=== PATIENT | female | born 1965 | race Caucasian/White ===

== ENCOUNTER 2020-03-18 11:34 | Emergency (ER) | payer OTHER ==
[~2020-03-18] VITALS: Ht 172.7 cm; Wt 75.7 kg
[~2020-03-18 11:34] MED LIST: ADVAIR 500-501 EACH INH; BUPROPION XL300 MG PO; BUSPIRONE HCL5 MG PO; DULOXETINE HCL30 MG PO; ESTRADIOL2 MG PO; FLONASE ALLERG9.9 ML NAS; GABAPENTIN300 MG PO; HYDROCHLOROTHIA25 MG PO; HYDROXYZINE HCL50 MG PO; KETOCONAZOLE15 GM TOP; LANSOPRAZOLE30 MG PO; LINZESS145 MCG PO; MOTRIN IB200 MG PO; NAPROXEN500 MG PO; NORCO 5-325 TA1 EACH PO; PRAVASTATIN SOD20 MG PO; PREDNISONE20 MG PO; PROVERA2.5 MG PO; SINGULAIR10 MG PO; SPIRIVA RESPIMAT4 G1 INH; SYMBICORT 16010.2 GM INH; ZOFRAN4 MG PO
--- OUTSIDE RECORDS SUMMARY | 2020-03-18 11:36 | XMS ---
PreManage Notification: DRU DUNN Security Copy Manager Events No recent Security Events currently on file CR[facility]IA MET - [facility] There are no care providers on record at this time. Chani has no Care Guidelines for this patient. Evan VISIT COUNT (12 MO.) 1 [facility] [place] TOTAL 1 NOTE: Visits indicate total known visits. ED/UCC VISIT TRACKING (12 MO.) 03/18/2020 11:34 [facility] [place] TYPE: Emergency COMPLAINT: - BACK/HIP PAIN NON INJURY INPATIENT VISIT TRACKING (12 MO.) No inpatient visits to display in this time frame [id number]
[2020-03-18] MEDS ORDERED: PREDNISONE20 MG PO (12:35)
[2020-03-18] MEDS ORDERED: NEURONTIN100 MG PO ×2 (12:36→12:37)
== END 2020-03-18 13:13 | disposition home or self-care (01) ==
LOC: ED 11:34
DX: M54.5 Low back pain (principal); J45.909 Unspecified asthma, uncomplicated; F17.200 Nicotine dependence, unspecified, uncomplicated; Z88.0 Allergy status to penicillin; Z88.8 Allergy status to other drugs, medicaments and biological substances; Z79.899 Other long term (current) drug therapy
CPT/HCPCS: 96372; 99283; J1100; J1885

== ENCOUNTER 2020-05-05 11:08 | Emergency (ER) | payer OTHER ==
[~2020-05-05] VITALS: Ht 172.7 cm; Wt 72.1 kg
[~2020-05-05 11:08] MED LIST changes: +NEURONTIN100 MG PO
--- OUTSIDE RECORDS SUMMARY | 2020-05-05 11:10 | XMS ---
PreManage Notification: DRU DUNN Security Program Manager Rn Events No recent Security Events currently on file CRITERIA MET - [facility] There are no care providers on record at this time. Chani has no Care Guidelines for this patient. Evan VISIT COUNT (12 MO.) 2 [facility] [place] TOTAL 2 NOTE: Visits indicate total known visits. ED/C VISIT TRACKING (12 MO.) 05/05/2020 11:08 [facility] [place] TYPE: Emergency COMPLAINT: - L SHOULDER PAIN 03/18/2020 11:[address] [facility] [place] TYPE: Emergency COMPLAINT: - BACK/HIP PAIN NON INJURY DIAGNOSES: - Allergy status to other drugs, medicaments and biological substances - Unspecified asthma, uncomplicated - Low back pain - Other pet technologist (current) drug therapy - Allergy status to penicillin - Allergy status to other drugs, medicaments and biological substances - Nicotine dependence, unspecified, uncomplicated INPATIENT VISIT TRACKING (12 MO.) No inpatient visits to display in this time frame [email or web address]
[2020-05-05] MEDS ORDERED: HYDROCODON-ACE1 EA10 PO (14:00)
--- NOTE | 2020-05-07 13:33 | EKG ---
[facility] [address] [place] [address] Signed Normal sinus rhythm Anterior infarct (cited on or before 23-DEC-2019) Abnormal ECG When compared with ECG of 23-DEC-2019 10:25, Vent. rate has increased BY 37 BPM Confirmed by NADIA CALVIN MD ([id number]) on 05/07/2020 1:32:59 PM Electronically Signed By: NADIA CALVIN MD 05/07/20 1333 PATIENT NAME: DRU DUNN Electrocardiogram DATE OF : 61 PHYSICIAN: NADIA CALVIN MD REPORT #: [id number] REPORT IS CONFIDENTIAL AND NOT TO BE RELEASED WITHOUT AUTHORIZATION
== END 2020-05-05 14:24 | disposition home or self-care (01) ==
LOC: ED 11:08
DX: M25.512 Pain in left shoulder (principal); J45.909 Unspecified asthma, uncomplicated; F17.200 Nicotine dependence, unspecified, uncomplicated; Z88.0 Allergy status to penicillin; Z88.6 Allergy status to analgesic agent; Z79.899 Other long term (current) drug therapy
CPT/HCPCS: 73030; 93005; 93010; 99283-25

== ENCOUNTER 2021-01-14 18:32 | Emergency (ER) | payer OTHER ==
[~2021-01-14] VITALS: Ht 172.7 cm; Wt 72.1 kg
[~2021-01-14 18:32] MED LIST changes: +HYDROCODON-ACE1 EA10 PO
--- OUTSIDE RECORDS SUMMARY | 2021-01-14 18:34 | XMS ---
PreManage Notification: DRU DUNN Security Jewel Stringer Events No recent Security Events currently on file CRITERIA MET - [facility]MP CARE PROVIDERS [facility], Clinic/Center: [facility] PHONE: [phone] JOZEF SCHWARTZ [facility] 05/06/2020-Current PHONE: [phone] Chani has no Care Guidelines for this patient. Care History Medical/Surgical 05/06/2020 [facility] - PLEASE BE ADVISED- PATIENT CURRENTLY ON A PAIN CONTRACT 05/06/2020 [facility] Care Recommendation: - PLEASE REVIEW PDMP - CHANI - USE EXTREME CAUTION IN GIVING NARCOTICS. - Avoid Discharge Narcotic prescriptions if at all possible. Physician discretion. E.D. VISIT COUNT (12 MO.) [address] [facility] TOTAL 3 NOTE: Visits indicate total known visits. ED/UCC VISIT TRACKING (12 MO.) 01/14/2021 18:32 [facility] [place] TYPE: Emergency COMPLAINT: - POSSIBLE SEIZURE,WEAKNESS 05/05/2020 11:08 [facility] [place] TYPE: Emergency COMPLAINT: - L SHOULDER PAIN DIAGNOSES: - Allergy status to analgesic agent - Pain in left shoulder - Unspecified asthma, uncomplicated - Other nursing home (current) drug therapy - Allergy status to penicillin - Nicotine dependence, unspecified, uncomplicated 03/18/2020 11:[address] 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
--- NOTE | 2021-01-15 18:56 | EKG ---
[facility] [address] [facility] [place] [address] Signed Sinus rhythm with occasional premature ventricular complexes Possible Left atrial enlargement Pulmonary disease pattern Septal infarct (cited on or before 23-DEC-2019) Abnormal ECG When compared with ECG of 21-OCT-2020 15:38, No significant change was found Confirmed by NADIA CALVIN MD ([id number]) on 01/15/2021 6:56:36 PM Electronically Signed By: NADIA CALVIN MD 01/15/21 1856 PATIENT NAME: DRU DUNN Electrocardiogram DATE OF : 61 PHYSICIAN: NADIA CALVIN MD REPORT #: [id number] REPORT IS CONFIDENTIAL AND NOT TO BE RELEASED WITHOUT AUTHORIZATION
== END 2021-01-15 00:11 | disposition home or self-care (01) ==
LOC: ED 18:32
DX: R41.82 Altered mental status, unspecified (principal); J45.909 Unspecified asthma, uncomplicated; F17.200 Nicotine dependence, unspecified, uncomplicated; Z20.822 Contact with and (suspected) exposure to COVID-19; Y90.0 Blood alcohol level of less than 20 mg/100 ml; Z88.0 Allergy status to penicillin; Z88.6 Allergy status to analgesic agent; Z79.899 Other long term (current) drug therapy; Z79.52 Long term (current) use of systemic steroids
CPT/HCPCS: 51701; 70450; 71045; 80053; 81001; 84443; 84484; 84703; 85025; 93005; 93010; 99285-25; C9803; G0480; J7030; U0003

== ENCOUNTER 2021-09-01 10:46 | Emergency (ER) | payer OTHER ==
[~2021-09-01] VITALS: Ht 172.7 cm; Wt 77.0 kg
--- OUTSIDE RECORDS SUMMARY | 2021-09-01 10:48 | XMS ---
PreManage Notification: DRU DUNN Security Shipping Clerk Events No recent Security Events currently on file CRITERIA MET - [facility] - 2 Visits in 30 Days - PDMP CARE PROVIDERS [facility], Clinic/Center: [facility] PHONE: Unknown JOZEF SCHWARTZ [facility] 05/06/2020-Current PHONE: Unknown Chani has no Care Guidelines for this patient. Care History Medical/Surgical 05/06/2020 [facility] - PLEASE BE ADVISED- PATIENT CURRENTLY ON A PAIN CONTRACT 05/06/2020 [facility] Care Recommendation: - PLEASE REVIEW PDMP - CHANI - USE EXTREME CAUTION IN GIVING NARCOTICS. - Avoid Discharge Narcotic prescriptions if at all possible. Physician discretion. E.D. VISIT COUNT (12 MO.) [address] [facility] TOTAL 4 NOTE: Visits indicate total known visits. ED/UCC VISIT TRACKING (12 MO.) 09/01/2021 10:46 [facility] [place] TYPE: Emergency COMPLAINT: - CHEST PAIN, HEADACHE 08/31/2021 09:56 [facility] [place] TYPE: Emergency COMPLAINT: - HEADACHE, SORE THROAT, EAR ACHE, DRY COUGH 08/30/2021 20:54 [facility] [place] TYPE: Emergency COMPLAINT: - HEADACHE, SORE THROAT 01/14/2021 18:32 [facility] [place] TYPE: Emergency COMPLAINT: - POSSIBLE SEIZURE,WEAKNESS DIAGNOSES: - Blood alcohol level of less than 20 mg/100 ml - Contact with and (suspected) exposure to COVID-19 - Altered mental status, unspecified - Allergy status to penicillin - Allergy status to analgesic agent - Nicotine dependence, unspecified, uncomplicated - Unspecified asthma, uncomplicated - Other equip maint eng (current) drug therapy - 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
[2021-09-02] MEDS ORDERED: CLONIDINE HCL0.1 MG PO (05:37)
--- NOTE | 2021-09-03 08:57 | EKG ---
[facility] [address] [facility] [place] [address] Signed Normal sinus rhythm Biatrial enlargement Septal infarct (cited on or before 23-DEC-2019) Possible Lateral infarct , age undetermined Abnormal ECG When compared with ECG of 14-JAN-2021 19:02, premature ventricular complexes are no longer present Borderline criteria for Lateral infarct are now present ST no longer elevated in Inferior leads Nonspecific T wave abnormality now evident in Inferior leads Confirmed by NADIA CALVIN MD ([id number]) on 09/03/2021 8:57:20 AM Electronically Signed By: NADIA CALVIN MD 09/03/21 0857 PATIENT NAME: DRU DUNN Electrocardiogram DATE OF : 61 PHYSICIAN: NADIA CALVIN MD REPORT #: [id number] REPORT IS CONFIDENTIAL AND NOT TO BE RELEASED WITHOUT AUTHORIZATION
== END 2021-09-01 13:06 | disposition left against medical advice (07) ==
LOC: ED 10:46
DX: Z53.21 Procedure and treatment not carried out due to patient leaving prior to being seen by health care provider (principal)
CPT/HCPCS: 93005; 93010

== ENCOUNTER 2021-09-02 05:24 | Emergency (ER) | payer OTHER ==
[~2021-09-02] VITALS: Ht 172.7 cm; Wt 78.0 kg
--- OUTSIDE RECORDS SUMMARY | 2021-09-02 05:26 | XMS ---
PreManage Notification: DRU DUNN Security Jewel Hole Gauger Events No recent Security Events currently on file CRITERIA MET - [facility] - 2 Visits in 30 Days - PDMP CARE PROVIDERS [facility], Clinic/Center: [facility] PHONE: Unknown JOZEF SCHWARTZ [facility] 05/06/2020-Current PHONE: Unknown Chani has no Care Guidelines for this patient. Care History Medical/Surgical 05/06/2020 [facility] - PLEASE BE ADVISED- PATIENT CURRENTLY ON A PAIN CONTRACT 05/06/2020 [facility] Care Recommendation: - PLEASE REVIEW PDMP - CHANI - USE EXTREME CAUTION IN GIVING NARCOTICS. - Avoid Discharge Narcotic prescriptions if at all possible. Physician discretion. E.D. VISIT COUNT (12 MO.) [address] [facility] TOTAL 5 NOTE: Visits indicate total known visits. 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
[2021-09-02] MEDS ORDERED: CLONIDINE HCL0.1 MG PO (05:37)
== END 2021-09-02 06:27 | disposition home or self-care (01) ==
LOC: ED 05:24
DX: B34.9 Viral infection, unspecified (principal); J45.909 Unspecified asthma, uncomplicated; F17.200 Nicotine dependence, unspecified, uncomplicated; Z88.0 Allergy status to penicillin; Z88.8 Allergy status to other drugs, medicaments and biological substances; Z79.899 Other long term (current) drug therapy; Z79.51 Long term (current) use of inhaled steroids
CPT/HCPCS: 71046; 99283-25

== ENCOUNTER 2022-07-31 07:31 | Day surgery (SDC) | payer OTHER ==
[~2022-07-31] VITALS: Ht 167.6 cm; Wt 65.9 kg
[~2022-07-31 07:31] MED LIST changes: +BUPRENORPHIN-N1 EACH SL; +CLONIDINE HCL0.1 MG PO; +K-TAB ER20 MEQ PO
[2022-07-31 07:55] VITALS: BP 142/66
--- NOTE | 2022-07-31 10:36 | NUR ---
07/31/22 Maryse6 [place] 1024-PATIENT ARRIVED TO PACU ON 6L MASK ORAL AIRWAY IN PLACE NONAROUSABLE RR EVEN. SR. IVF INFUSING. 5 LAP SITES TO ABDOMEN STERI STRIPS SMALL AMT OF SHADOWING TO RLQ. 1032-PATIENT AROUSING TO VERBAL STIMULI OPENING EYES AND MOVING UPPER EXTREMITIES. ORAL AIRAY REMOVED. REMAINS ON 6L MASK RR EVEN. PATIENT ORIENTED TO PACU CLOSES EYES.
[2022-07-31] MEDS ORDERED: OXYCODON-ACETA1 EAC2 PO (10:37)
[2022-07-31] MEDS ORDERED: ACETAMINOPHEN500 MG PO (10:38)
[2022-07-31 11:20] VITALS: BP 122/58
--- NOTE | 2022-07-31 11:32 | NUR ---
1120: PT ARRIVES TO DS RM 4 FROM PACU VIA STRETCHER WITH LEGS BENT TO CHEST, HUGGING PILLOW. PT WINCING WITH PAIN ON ARRIVAL, RATES 8/10 IN UPPER LAP SITES. PT PROVIDED ICED WATER PER REQUEST AND ROLLS TO LEFT SIDE WITH WARM BLANKETS PLACED. DC CRITERIA EXPLAINED, CALL LIGHT WITHIN REACH.
[2022-07-31 12:22] VITALS: BP 108/43
--- NOTE | 2022-07-31 12:24 | NUR ---
1220: PT WAKES WITH TACTILE AND VERBAL STIM. ANSWERS QUESTIONS APPROPRIATELY. VSS, RESP EVEN AND UNLABORED. DRESSING WITH SMALL AMOUNT OF RED DRAINAGE. SCDS IN PLACE. PT DENIES NEEDS AND REQUESTS AT THIS TIME. RESTS WITH EYES CLOSED. CALL LIGHT WITHIN REACH
[2022-07-31 13:04] VITALS: BP 147/74
--- NOTE | 2022-07-31 17:33 | NUR ---
IC1932: PT USES CALL LIGHT TO NOTIFY RN OF URGE TO VOID. PT SITS AT SIDE OF BED PRIOR TO STANDING, DENIES NAUSEA OR DIZZINESS. STEADY GAIT TO BATHROOM WITH RN ASSIST, PT ABLE TO VOID 550 MLS LIGHT YELLOW WITH NO PROBLEM. BACK TO DS RM 4 AND WOULD LIKE TO GET DRESSED AND DC HOME. LAP SITES REINFORCED WITH GAUZE AND PAPERTAPE TO PROTECT PERSONAL CLOTHING. PT DRESSES SELF AND OPENS CURTAIN WHEN FINISHED. PT CALLS SPOUSE FOR SAFE RIDE HOME. [id number]: DC INSTRUCTIONS PRESENTED VERBALLY AND WRITTEN TO PT. PT AWARE OF PRESCRIPTION IN DC FOLDER THAT WILL NEED TO BE TAKEN TO PHARMACY TO HAVE FILLED. PT DC FROM DS RM 4 VIA WC TO SPOUSE WAITING AT FRONT ENTRANCE OF HOSPITAL TO HOME.
--- NOTE | 2022-08-01 10:59 | OR ---
[facility] [address] [place], [place] [address] Signed DATE OF OPERATION: 07/31/2022 SURGEON: Nneka Campos MD PREOPERATIVE DIAGNOSIS: Chronic calculous cholecystitis. POSTOPERATIVE DIAGNOSIS: Chronic calculous cholecystitis. PROCEDURES: 1. Laparoscopic cholecystectomy with intraoperative cholangiogram. 2. Surgeon-directed fluoroscopy. ANESTHESIA: General endotracheal, Juan Lxu CRNA and local 10 mL of 0.25% Marcaine with epinephrine. INDICATION: This 57-year-old white woman is a patient of Dr. Renate Pope and has been found to have chronic calculous cholecystitis based on clinical symptoms and multiple gallstones seen on gallbladder ultrasound. She had anticipated operation in February 2022, however, was having symptoms suggestive of possible cardiac disease as well. She underwent a cardiac evaluation showing no significant coronary problem. On that basis, she is cleared for cholecystectomy at this time. The risks of bleeding, infection, bile duct injury, and so forth were reviewed with her in detail. Of note, her symptoms are significant enough that she has lost over 30 pounds due to decreased oral intake. This tentatively related to symptomatic gallbladder. FINDINGS: There is no evidence of malignancy in any way. The gallbladder was a very elongated and chronically inflamed. Once excised has had multiple variably sized multifaceted yellow gallstones including some nearly 2 cm and others that were 0.5 cm. Cholangiogram was normal. The liver had persistent lobulation and floppy medial segmental lobulation which made access and exposure somewhat more challenging, but cholecystectomy was performed without problem. DESCRIPTION OF PROCEDURE: The patient was brought to the operating room, given a general endotracheal anesthetic. Electronically Signed By: NNEKA CAMPOS MD 08/01/22 1059 PATIENT NAME: DRU DUNN OPERATIVE REPORT DATE OF : 61 REPORT #: [id number] PHYSICIAN: NNEKA CAMPOS MD PCP: RENATE POPE MD REPORT IS CONFIDENTIAL AND NOT TO BE RELEASED WITHOUT AUTHORIZATION [facility] [address] [place], [place] [address] Signed Preoperative antibiotic Ancef was given. Sequential compression device stockings were used. Heparin subcutaneously administered. The abdomen was prepared with a chlorhexidine solution and draped sterilely. An infraumbilical incision was made and using an open Taras cannula technique pneumoperitoneum was achieved at level 14 mmHg of carbon dioxide gas. Intra-abdominal inspection showed no sign of ascites or carcinomatosis. The gallbladder was chronically inflamed and impressively elongated. Three additional trocars were placed in usual configuration in the subxiphoid, right midclavicular, and right anterior axillary line. The gallbladder was elevated, but was so redundant that the midportion was then grasped and elevated more fully. Excessive hypertrophied lobulation of the medial segment of the left lobe of the liver was noted and on that basis, a 5 mm trocar was placed with application of a fan retractor to provide exposure to the infundibulum. Given her thin body habitus easy evaluation of the cystic duct and common bile duct was noted. Lateral retraction of the infundibulum of gallbladder was undertaken using blunt electrocautery dissection. The triangle of Calot was dissected free showing a funnel-like elongated cystic duct. Cystic arterial branch was divided with hernesto as well. A somewhat enlarged pericholecystic lymph node was also noted. Once the cystic duct was well identified from the surrounding area with maintenance of the critical view of safety a clip was applied across gallbladder cystic duct junction. A transverse choledochotomy was made in the cystic duct. Using an Hudson type cholangiocatheter intraoperative cholangiography was undertaken. Free flow of contrast was noted into the biliary tree and prompt emptying into the duodenum. There was no sign of biliary anomaly. The catheter was removed. The cystic duct was triply clipped and divided. The gallbladder was then dissected free in a retrograde fashion using electrocautery. Gallbladder was extracted through the infraumbilical port site without problem, opened on the back table and found to have multifaceted yellow gallstones. The mucosa was chronically inflamed. There was no sign of malignancy. Irrigation was undertaken in subhepatic space. There was no sign of bleeding or other problems. A few clips were applied to the omental vessels as well. Excess irrigation fluid was suctioned free. The trocars removed under direct visualization showing no sign of bleeding. The infraumbilical fascial incision was reapproximated with interrupted 0 Vicryl suture. 10 mL of 0.25% Marcaine with epinephrine was injected locally. The skin was then closed with interrupted 3-0 Vicryl. Steri-Strips were applied. The patient was ultimately extubated and transferred to the recovery room in good condition having suffered no complication. Sponge, needle, and instrument counts were reported as correct x3. Nneka Campos MD Electronically Signed By: NNEKA CAMPOS MD 08/01/22 1059 PATIENT NAME: DRU DUNN OPERATIVE REPORT DATE OF : 61 REPORT #: [id number] PHYSICIAN: NNEKA CAMPOS MD PCP: RENATE POPE MD REPORT IS CONFIDENTIAL AND NOT TO BE RELEASED WITHOUT AUTHORIZATION [facility] [address] [place] [address] Signed /MODL /[id number] cc: Renate Pope MD Copies: RENATE POPE MD ~ Electronically Signed By: NNEKA CAMPOS MD 08/01/22 1059 PATIENT NAME: DRU DUNN OPERATIVE REPORT DATE OF : 61 REPORT #: [id number] PHYSICIAN: NNEKA CAMPOS MD PCP: RENATE POPE MD REPORT IS CONFIDENTIAL AND NOT TO BE RELEASED WITHOUT AUTHORIZATION
--- NOTE | 2022-08-03 16:47 | PATH ---
[facility] [address] [place], [place] [address] Signed SPECIMEN(S): A GALLBLADDER WITH STONES SPECIMEN SOURCE: A. GALLBLADDER WITH STONES CLINICAL HISTORY: Calculus of gallbladder with cholecystitis. FINAL PATHOLOGIC DIAGNOSIS: Gallbladder, cholecystectomy: - Chronic cholecystitis. - Cholelithiasis. - Cholesterolosis. - No evidence of neoplasia. YUNIELK:godwin:C2NR MICROSCOPIC EXAMINATION: Histologic sections of all submitted blocks are examined by light microscopy. These findings, together with the gross examination, support the pathologic diagnosis. GROSS DESCRIPTION: The specimen, labeled and designated "Christy, gallbladder with stones," is received in formalin and consists of Specimen: Previously opened gallbladder. Dimensions: 11.5 x 5.0 x 1.8 cm. Serosa: Blanket to violaceous and wrinkled. Cystic Duct: Unobstructed. Calculi: Yellow to brown, multifaceted, 8.3 x 4.8 x 2.4 cm in aggregate. Mucosa: Blanket-trujillo and trabecular. Wall thickness: 0.5 cm. Lymph node: A single pericystic lymph node candidate, 0.4 cm (inked blue). Additional: No polyps or lesions are seen. Wallpaper Hanger sections are submitted in (A1). KEO (under the direct supervision of a pathologist) The Gross Description was prepared using a voice recognition system. The report was reviewed for accuracy; however, sound-alike word errors, addition and/or deletions may occur. If there is any question about this report, please contact Client Services. PERFORMING LABORATORY: PATIENT NAME: DRU DUNN PATHOLOGY DATE OF : 61 REPORT #: [id number] PHYSICIAN: MEHRDAD TAYLOR PCP: RENATE GLOVER MD REPORT IS CONFIDENTIAL AND NOT TO BE RELEASED WITHOUT AUTHORIZATION [facility] [address] [place] [address] Signed The technical component was performed by [facility], [address] [place] [address] (CLIA# [id number]). The professional interpretation was performed by [facility], [address] [address] (CLIA#: [id number]). Diagnostician: Phani Blanca MD Pathologist Electronically Signed 08/03/2022 Copies: ~ PATIENT NAME: DRU DUNN PATHOLOGY DATE OF : 61 REPORT #: [id number] PHYSICIAN: MEHRDAD TAYLOR PCP: RENATE GLOVER MD REPORT IS CONFIDENTIAL AND NOT TO BE RELEASED WITHOUT AUTHORIZATION
== END 2022-07-31 13:20 | disposition home or self-care (01) ==
LOC: DS 07:31
PROVIDERS: ATTEND Surgery
PROC: BF101ZZ Fluoroscopy of Bile Ducts using Low Osmolar Contrast (ICD-10-PCS; 2022-07-31)
PROC: 0FT44ZZ Resection of Gallbladder, Percutaneous Endoscopic Approach (ICD-10-PCS; principal; 2022-07-31 09:00)
DX: K80.10 Calculus of gallbladder with chronic cholecystitis without obstruction (principal); I10 Essential (primary) hypertension; J44.9 Chronic obstructive pulmonary disease, unspecified; F17.210 Nicotine dependence, cigarettes, uncomplicated; Z79.899 Other long term (current) drug therapy; Z88.0 Allergy status to penicillin
CPT/HCPCS: 00790; 74300; J0131; J0330; J0690; J1100; J1170; J1644; J1885; J2001; J2250; J2405; J2704; J3010; J3475; J7121; Q9967

== ENCOUNTER 2023-11-28 11:04 | Observation (INO) | payer OTHER ==
[~2023-11-28] VITALS: Ht 167.6 cm; Wt 58.3 kg
[~2023-11-28 11:04] MED LIST changes: +ACETAMINOPHEN500 MG PO; -ADVAIR 500-501 EACH INH; -CLONIDINE HCL0.1 MG PO; -ESTRADIOL2 MG PO; -LANSOPRAZOLE30 MG PO; +OXYCODON-ACETA1 EAC2 PO
[2023-11-28] MEDS ORDERED: SODIUM CHLORIDE 0.9% 1,000 ML IV ONE (12:15)
[2023-11-28] MEDS ORDERED: ondansetron HCL 4 MG/2 ML VIAL IV ONE (12:15)
[2023-11-28] MEDS ORDERED: HYDROmorphone HCL 1 MG/ML SYR IV ONE (12:15)
[2023-11-28 12:24] LABS: BASOPHILS 1.3 % (0-2); EOSINOPHILS 2.4 % (0-6); HEMATOCRIT 44.8 % (35.0-50.0); HEMOGLOBIN 15.1 g/dL (12.0-18.0); LYMPHOCYTES 33.8 % (24-44); MCH 30.2 (27-36); MCHC 33.7 g/dl (30-36); MCV 89.7 fl (81-99); MONOCYTES 6.8 % (0-12); NEUTROPHILS 55.7 % (39-80); PLATELET COUNT 367 K/uL (140-440); RDW 14.7 (10.5-15.0)
[2023-11-28 12:28] LABS: BILIRUBIN, URINE NEGATIVE (negative); BLOOD/HGB, URINE NEGATIVE (Negative); KETONE, URINE NEGATIVE (Negative); LEUK ESTERASE, URINE NEGATIVE (negative); NITRITE, URINE NEGATIVE (negative); PH, URINE 6.5 (5-7)
[2023-11-28 12:29] LABS: ALBUMIN 4.2 g/dL (3.4-5.0); ALBUMIN/GLOBULIN RATIO 1.14 (1.1-2.4); ANION GAP 14.7 (7-21); BILIRUBIN, TOTAL 0.3 ng/dL (0.2-1.0); BUN/CREATININE RATIO 12.32 (6.0-28.6); CALCIUM 9.5 mg/dL (8.5-10.1); CREATININE, SERUM 0.73 mg/dL (0.55-1.02); POTASSIUM 3.7 mmol/L (3.5-5.1); PROTEIN, TOTAL 7.9 g/dL (6.4-8.2)
[2023-11-28] MEDS ORDERED: ATORVASTATIN CA40 MG PO (14:38)
[2023-11-28] MEDS ORDERED: VENTOLIN HFA18 GM INH (14:38)
[2023-11-28] MEDS ORDERED: FLUOXETINE HCL40 MG PO (14:38)
[2023-11-28] MEDS ORDERED: BUPROPION XL150 MG PO (14:39)
[2023-11-28] MEDS ORDERED: ESTRADIOL2 MG PO (14:40)
[2023-11-28] MEDS ORDERED: CLONIDINE HCL0.1 MG PO (14:40)
[2023-11-28] MEDS ORDERED: LANSOPRAZOLE30 MG PO (14:40)
[2023-11-28] MEDS ORDERED: MONTELUKAST SOD10 MG PO (14:41)
[2023-11-28 14:54] VITALS: BP 159/81
[2023-11-28] MEDS ORDERED: DEXTROSE 5% - LACTATED RINGERS 1,000 ML IV SCH ×2 (15:00→17:00)
[2023-11-28] MEDS ORDERED: ondansetron HCL 4 MG/2 ML VIAL IV PRN ×2 (15:00→17:00)
[2023-11-28] MEDS ORDERED: HYDROmorphone HCL 1 MG/ML SYR IV PRN ×2 (15:00→17:00)
[2023-11-28] MEDS ORDERED: BENADRYL25 MG PO (15:38)
[2023-11-28] MEDS ORDERED: SLEEP AID25 M1 PO (15:39)
[2023-11-28] MEDS ORDERED: SPIRIVA18 MCG INH (15:40)
[2023-11-28] MEDS ORDERED: ADVAIR 500-501 EACH INH (15:41)
--- NOTE | 2023-11-28 15:42 | EKG ---
[facility] [address] [facility] [place] [address] Signed Normal sinus rhythm Low voltage QRS Septal infarct (cited on or before 23-DEC-2019) Abnormal ECG When compared with ECG of 27-FEB-2022 15:30, No significant change was found Confirmed by Tim Cantu ([id number]) on 11/28/2023 3:42:12 PM Electronically Signed By: TIM CANTU MD 11/28/23 1542 PATIENT NAME: DRU DUNN Electrocardiogram DATE OF : 61 PHYSICIAN: TIM CANTU MD REPORT #: [id number] REPORT IS CONFIDENTIAL AND NOT TO BE RELEASED WITHOUT AUTHORIZATION
--- NOTE | 2023-11-28 15:43 | NUR ---
MED REC COMPLETE
[2023-11-28] MEDS ORDERED: levoFLOXacin 500 MG/100 ML BAG IV SCH (16:49)
[2023-11-28] MEDS ORDERED: ENOXAPARIN SODIUM 40 MG/0.4 ML SYR SUB-Q SCH (16:50)
[2023-11-28] MEDS ORDERED: PANTOPRAZOLE SODIUM 40 MG/10 ML VIAL IV SCH (16:50)
[2023-11-28] MEDS ORDERED: ACETAMINOPHEN 325 MG TAB PO PRN (17:00)
[2023-11-28] MEDS ORDERED: ACETAMINOPHEN 650 MG SUPP PR PRN (17:00)
[2023-11-28] MEDS ORDERED: HYDROCODONE/APAP 10/325 1 TAB PO PRN (17:00)
[2023-11-28] MEDS ORDERED: PROCHLORPERAZINE EDISYLATE 10 MG/2 ML VIAL IV PRN (17:00)
[2023-11-28 17:35] VITALS: BP 155/84
[2023-11-28] MEDS ORDERED: ALBUTEROL/IPRATROPIUM 3 ML NEB INH PRN (18:00)
[2023-11-28] MEDS ORDERED: hydrALAZINE HCL 20 MG/ML VIAL IV PRN (18:00)
[2023-11-28] MEDS ORDERED: hydrOXYzine pamoate 25 MG CAP PO PRN (18:00)
--- NOTE | 2023-11-28 19:58 | NUR ---
REPORT RECIEVED FROM DAY SHIFT RN. PATIENT RESTING IN BED WATCHING TV. RESPIRATIONS EVEN AND UNLABORED. CALL LIGHT IN REACH.
[2023-11-28] MEDS ORDERED: BUDESONIDE 0.5 MG/2 ML VIAL INH SCH (20:00)
--- NOTE | 2023-11-28 20:55 | NUR ---
PATIENT RESTING IN BED. VS AND I&Os OBTAINED AND RECORDED. PATIENT REPORTS 8/10 MID ABD PAIN NEAR UMBILICUS. PRN PAIN MEDICATION ADMINISTERED PER PATIENT REQUEST. IV FLUSHES WNL. PATIENT DENIES NURTHER NEEDS. CALL LIGHT IN REACH.
[2023-11-28 20:58] VITALS: BP 149/87
--- NOTE | 2023-11-28 23:37 | NUR ---
PATIENT RESTING IN BED ON LEFT SIDE WITH EYES CLOSED. RESPIRATIONS EVEN AND UNLABORED. CALL LIGHT IN REACH.
[2023-11-29] VITALS (10 sets, daily range): BP systolic 124–167; BP diastolic 69–101
--- NOTE | 2023-11-29 00:01 | NUR ---
LEAD ENGINEER WENT INTO ROOM AND REMOVED PT CUPS AND INFORMED PT THAT SHE WAS NOW NPO. PT STATES NO FURTHER NEEDS AT THIS TIME. CALL LIGHT WITHIN REACH.
--- NOTE | 2023-11-29 01:21 | NUR ---
NAME PLATE STAMPER OBTAINED VITALS AND OUTPUT. PT STATES NO FURTHER NEEDS AT THIS TIME. CALL LIGHT WITHIN REACH.
--- NOTE | 2023-11-29 02:10 | NUR ---
IV PUMP ALARMING. NEW BAG IV FLUID INFUSING PER ORDER. PATIENT DENIES FURTHER NEEDS. CALL LIGHT IN REACH.
--- NOTE | 2023-11-29 03:55 | NUR ---
PATIENT RESTING IN BED ON LEFT SIDE WITH EYES CLOSED. RESPIRATIONS EVEN AND UNLABORED. CALL LIGHT IN REACH.
--- NOTE | 2023-11-29 05:43 | NUR ---
PARTITION MAKING MACHINE OPERATOR OBTAINED VITALS AND I&O. PT STATES NO NEEDS FROM PARTITION MAKING MACHINE OPERATOR. RN IN ROOM. CALL LIGHT WITHIN REACH.
--- NOTE | 2023-11-29 06:03 | NUR ---
PATIENT REPORTS 7/10 ABD PAIN NEAR UMBILICAL HERNIA. PRN PAIN MEDICATION ADMINISTERED PER PATIENT REQUEST. PATIENT DENIES FURTHER NEEDS AT THIS TIME. CALL LIGHT IN REACH.
[2023-11-29 07:15] LABS: BASOPHILS 1.3 % (0-2); EOSINOPHILS 2.9 % (0-6); HEMATOCRIT 38.7 % (35.0-50.0); HEMOGLOBIN 12.9 g/dL (12.0-18.0); LYMPHOCYTES 33.7 % (24-44); MCH 29.9 (27-36); MCHC 33.3 g/dl (30-36); MCV 89.8 fl (81-99); NEUTROPHILS 54.1 % (39-80); PLATELET COUNT 301 K/uL (140-440); RBC 4.31 M/ul (4.3-5.7); RDW 14.8 (10.5-15.0)
[2023-11-29 07:30] LABS: ALBUMIN 3.1 g/dL (3.4-5.0); ALBUMIN/GLOBULIN RATIO 1.03 (1.1-2.4); ANION GAP 10.7 (7-21); BILIRUBIN, TOTAL 0.3 ng/dL (0.2-1.0); BUN/CREATININE RATIO 7.69 (6.0-28.6); CALCIUM 8.5 mg/dL (8.5-10.1); CREATININE, SERUM 0.65 mg/dL (0.55-1.02); POTASSIUM 3.7 mmol/L (3.5-5.1); PROTEIN, TOTAL 6.1 g/dL (6.4-8.2)
--- NOTE | 2023-11-29 07:58 | NUR ---
UR CLINICAL REVIEW: AVNESSA, MEETS GENERAL OBSERVATION CRITERIA [facility] 11/28/23 @ 1405 ORDER MATCHES STATUS AUTH PENDING, WILL SEND CLINICALS IF REQUESTED VIA RIGHTFAX PLAN TO DC TO HOME WHEN STABLE 11/29/23
--- NOTE | 2023-11-29 08:46 | NUR ---
recieved report from shift nurse at 0715. pt is currently in bed resting and watching tv. no requests made at this time call light within reach
[2023-11-29] MEDS ORDERED: BUPIVACAINE HCL 0.25% 50 ML MDV ONE (09:27)
[2023-11-29] MEDS ORDERED: LIDOCAINE HCL 1% 30 ML SDV ONE ×2 (09:27→09:46)
[2023-11-29] MEDS ORDERED: LIDOCAINE HCL 2% 5 ML SDV ONE (09:46)
[2023-11-29] MEDS ORDERED: ROCURONIUM BROMIDE 50 MG/5 ML SYR ONE (09:46)
[2023-11-29] MEDS ORDERED: propofoL 200 MG/20 ML VIAL ONE (09:46)
[2023-11-29] MEDS ORDERED: DEXAMETHASONE SOD PHOS 4 MG/ML VIAL ONE (09:46)
[2023-11-29] MEDS ORDERED: ondansetron HCL 4 MG/2 ML VIAL ONE (09:46)
[2023-11-29] MEDS ORDERED: KETOROLAC TROMETHAMINE 30 MG/ML VIAL ONE (09:46)
[2023-11-29] MEDS ORDERED: fentaNYL citrate 100 MCG/2 ML VIAL ONE (09:47)
--- NOTE | 2023-11-29 09:51 | NUR ---
PT IS CURRENTLY OFF THE FLOOR AT SURGERY
[2023-11-29] MEDS ORDERED: SODIUM CHLORIDE 0.9% 20 ML IV ONE (10:01)
[2023-11-29] MEDS ORDERED: ePHEDrine sulfate 50 MG/ML AMP ONE (10:01)
[2023-11-29] MEDS ORDERED: ACETAMINOPHEN 1,000 MG/100 ML VIAL ONE (10:03)
[2023-11-29] MEDS ORDERED: LACTATED RINGER'S 1,000 ML IV ONE (10:38)
[2023-11-29] MEDS ORDERED: SUGAMMADEX SODIUM 200 MG/2 ML ML ONE (10:38)
--- NOTE | 2023-11-29 10:59 | NUR ---
PT GONE FOR PROCEDURE. PROVIDED PRAYER.
--- NOTE | 2023-11-29 11:00 | NUR ---
PATIENT SAID SHE ALREADY BRUSHED HER TEETH AND WASHED HER FACE THIS MORING. PATIENT IS INDEPENDENT.
--- NOTE | 2023-11-29 11:00 | CONS ---
[facility] [address], [place] [address] Signed DATE OF CONSULTATION: 11/28/2023 CHIEF COMPLAINT: Periumbilical abdominal pain. HISTORY OF PRESENT ILLNESS: Lenore is a 58-year-old female with a long history of smoking, who underwent a laparoscopic cholecystectomy in July [address] Cutler. She had some symptomatic cholelithiasis. She felt like she had some bulging in her umbilical trocar site immediately following the surgery. It has gotten progressively larger and more symptomatic. She has been working with her primary care provider. The molecular technologist did not ultrasound this area rather did a limited abdominal ultrasound of the liver and so forth. She went back for CT scan of abdomen and pelvis, of course one could see the transverse colon in this hernia. It is incarcerated and tender. There is some mild inflammatory changes as well. 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 Because of her increasing symptoms, she decided to come to the emergency room. Her hernia has been affecting her ability to help her and to go to work. 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 PAST MEDICAL HISTORY: 1. Anxiety. 2. Depression. 3. Asthma. 4. Chronic back pain. 5. Hypertension. 6. Degenerative disc disease of her neck and at L4 and L5. 7. A remote history of seizures. 8. Hyperlipidemia. 9. Right foot fracture, chronic pain and PTSD. PAST SURGICAL HISTORY: Includes: 1. Laparoscopic cholecystectomy in July [address] Cutler. 2. Surgery on her lumbar spine . SOCIAL HISTORY: She was smoking a pack of cigarettes a day, but she is down about five cigarettes a day. She does not drink. She likes to use an edible that contain CBD and THC to go to sleep each night. She is to [employer] at [phone], she does not drive, so [employer] or her friend has to take her to work. She has two daughters that are grown. She is a full code. 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 Dr. Renate Pope is her primary care provider. Electronically Signed By: JAN FISH MD 11/29/23 [facility] PATIENT NAME: LENORE DUNN CONSULTATION DATE OF : 61 REPORT #: [id number] PHYSICIAN: JAN FISH MD PCP: RENATE POPE MD REPORT IS CONFIDENTIAL AND NOT TO BE RELEASED WITHOUT AUTHORIZATION [facility] [address] [place] [address], [place] [address] Signed FAMILY HISTORY: Dad had lung cancer. REVIEW OF SYSTEMS: She had 10 systems reviewed and she told me she wore a boot for the right foot fracture. ALLERGIES: Penicillin, aspirin, amoxicillin all three gave her anaphylaxis. MEDICATIONS: 1. Symbicort. 2. Albuterol. 3. Spiriva. 4. Fluoxetine. 5. A list of other medications in the past. PHYSICAL EXAMINATION: VITAL SIGNS: Blood pressure 160/92, heart rate 86, respiratory rate 16, temperature is 97.5. She is 99% on room air. She is 5 feet 6 inches tall at 58 kg. Her body mass index is 20.6. GENERAL: Lenore is a 58-year-old female, lying supine in her hospital bed, watching TV. She is in no acute distress. LUNGS: Clear to auscultation bilaterally. She has very dry, raspy voice. HEART: Regular rate and rhythm without murmurs. ABDOMEN: Soft and flat. I can see the hernia bulging through her bed sheet. It is tender and incarcerated and it is probably 6 or 7 cm in diameter. It is tender and not reducible. LABORATORY DATA: Her white blood count 3.7, hemoglobin 15, neutrophils 65. Electrolytes unremarkable. UA negative. Liver function tests negative. Albumin 4.2. RADIOGRAPHIC STUDIES: An ultrasound done in September of 2023 of the abdomen rather than the hernia was unremarkable as expected. A CT scan and pelvis done two days ago shows some mild right hydronephrosis with a little bit of stricture probably at the UPJ. She also has the incarcerated umbilical hernia containing her transverse colon without obvious obstruction. She also has some mild inflammation in the mesentery. ASSESSMENT AND PLAN: Lenore is a 58-year-old female, who has an incarcerated symptomatic incisional umbilical hernia from her laparoscopic cholecystectomy. It most likely represents a Padilla's type hernia. She has been admitted and started on IV fluids, and allowed to have some Electronically Signed By: JAN FISH MD 11/29/23 [facility] PATIENT NAME: LENORE DUNN CONSULTATION DATE OF : 61 REPORT #: [id number] PHYSICIAN: JAN FISH MD PCP: RENATE POPE MD REPORT IS CONFIDENTIAL AND NOT TO BE RELEASED WITHOUT AUTHORIZATION [address] [address] Signed clear liquids. She is much better with a little Dilaudid as well. I reviewed all the findings with her in detail. I have explained to her the need for the surgery to repair that hernia. She understands expected intraop and postop course. She is hoping to go home tomorrow after the surgery. That depends on the intraoperative findings. There is risk including, but not limited to bleeding, infection, scarring, change in contour of the skin, damage to bowel, infection of mesh requiring removal, recurrent hernias and chronic pain. She has expressed understanding and would like to proceed with surgery tomorrow. Jan Fish MD ALB/MODL /[id number] cc: MD Renate Sarmiento MD Copies: JAN FISH MD, RUSSEL J MD ~ Electronically Signed By: JAN FISH MD 11/29/23 1100 PATIENT NAME: LENORE DUNN CONSULTATION DATE OF : 61 REPORT #: [id number] PHYSICIAN: JAN FISH MD PCP: RENATE POPE MD REPORT IS CONFIDENTIAL AND NOT TO BE RELEASED WITHOUT AUTHORIZATION
--- NOTE | 2023-11-29 11:09 | NUR ---
11/29/23 1109 Lelia Hoang 1106: ORAL AIRWAY IS REMOVED. SHE IS ALERT AND ASKING QUESTIONS.
[2023-11-29] MEDS ORDERED: ondansetron HCL 4 MG/2 ML VIAL IV PRN (11:15)
[2023-11-29] MEDS ORDERED: IBLOOD GLUCOSE TEST STRIP 1 EA TEST VI PRN (11:15)
[2023-11-29] MEDS ORDERED: NALOXONE HCL 0.4 MG SYR IV PRN (11:15)
[2023-11-29] MEDS ORDERED: fentaNYL citrate 50 MCG/ML SDV IV PRN (11:15)
[2023-11-29] MEDS ORDERED: OXYCODONE HCL10 MG PO (12:32)
--- NOTE | 2023-11-29 13:06 | NUR ---
THIS RN IN ROOM TO OBTAIN POST-OP VITALS. VITALS COMPLETE. PT NOTED TO BE EATING APPLE SAUCE, PT DENIES ANY NAUSEA AT THIS TIME. IV INFUSING WNL. PT DENIES ANY OTHER NEEDS. CALL LIGHT IN REACH. PT FRIEND IN ROOM.
--- NOTE | 2023-11-29 14:43 | NUR ---
SPOKE WITH PATIENT. SHE IS ALERT AND ORIENTED UP IN RECLINER. STATES SHE LIVES IN HOUSE WITH STEPS TO GET INSIDE. NO STAIRS INSIDE THE HOUSE. ONLY DME SHE HAS IS A NEBULIZER. PATIENT IS STILL ABLE TO DRIVE, FRIEND IS IN ROOM TO TRANSPORT PATIENT HOME FROM FACILITY. PATIENT HAS NO FINANCIAL DIFFICULTIES. STATES SHE HAS NO NEEDS AT HOME. PLANS TO DC THIS AFTERNOON.
--- NOTE | 2023-11-29 16:57 | NUR ---
PT DC'd BY NICOLAS MATTA RN AT 15:00
--- NOTE | 2023-11-30 07:12 | OR ---
[facility] [address] [place], [place] [address] Signed DATE OF OPERATION: 11/29/2023 SURGEON: Jan Fish MD PREOPERATIVE DIAGNOSIS: Incarcerated umbilical trocar site incisional hernia (3 x 2 cm). POSTOPERATIVE DIAGNOSIS: Incarcerated umbilical trocar site incisional hernia (3 x 2 cm). PROCEDURE: Primary repair with 8 cm round intraabdominal Ventralex mesh. ESTIMATED BLOOD LOSS: None. INDICATIONS: Lenore is a 58-year-old female, who had undergone a laparoscopic cholecystectomy in July [address] Cutler. She had cholelithiasis. After the surgery she was feeling bulging in that area. 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 She is currently working at the local [employer] and [employer]. 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 She said the area was getting larger and more painful. It has never caused a bowel obstruction. But it was starting to bother her more and more. She says she has cut way back on her eating and lost 70 pounds. She had been to her primary care provider. Ultrasound was done, but did not include the area of the hernia. Two months later, she had her CT scan and of course it confirmed the transverse colon in the hernia but no obstruction. She had some mild inflammatory changes in the surrounding mesentery. She also has very mild right hydronephrosis at the level of the UPJ. She came to the emergency room two days later with increased symptoms. Vital signs were fine except she is off her blood pressure medications. Therefore, her blood pressure was high. Her hernia was not reducible at that time. It was tender. Therefore, I was asked to admit her as a general surgeon on-call. I saw her in the hospital and only partially reduced the hernia. We hydrated her overnight and started on antibiotics. We had our medical service see her because of her medical issues and the fact that she stopped her medications over a month ago. This morning, she was feeling better and more relaxed and the hernia could be reduced along the edge, but I could feel it was still attached and I told her it is probably a little scar tissue in that area. I explained to her the nature of the surgery required to repair the trocar site incisional hernia. She understands with her heavy work she will need mesh in addition to the primary suture repair. She understands there is risk including, Electronically Signed By: JAN FISH MD 11/30/23 0712 PATIENT NAME: LENORE DUNN OPERATIVE REPORT DATE OF : 61 REPORT #: [id number] PHYSICIAN: JAN FISH MD PCP: RENATE GLOVER MD REPORT IS CONFIDENTIAL AND NOT TO BE RELEASED WITHOUT AUTHORIZATION [address] [address] Signed but not limited to bleeding, infection, scarring, change in contour of the skin, damage to bowel infection of mesh requiring removal, recurrent hernias and chronic pain. We anticipate she will go home later today. We will see her back in the office in a week or so for followup. She is certainly welcome to go back to work in a few days only under light duty status. She had expressed understanding, wished to proceed. PROCEDURE IN DETAIL: I met with Lenore in our preop area. Of course, the hernia is quite obvious at the umbilicus. After this, she was taken in the operating room and placed in the supine position under general endotracheal tube anesthesia. She was on preoperative antibiotics. She was on preoperative Lovenox. SCDs were utilized. We had her go to the restroom right before she went in the operating room. Therefore, no Shields catheter was placed. She was prepped and draped in the usual sterile fashion. We used her previous infraumbilical vertical incision and we opened that up sharply with a knife. We went down around the hernia sac with the help of a cautery. The entire hernia sac was excised and passed off the field. Sure enough part of the transverse colon and the transverse mesocolon was adherent to the circumference of the hernia. That was easily taken down with the cautery. There was no other adhesions noted inside the abdomen. This gave us free access to her abdomen. The fascial defect measured 3 x 2 cm. We therefore chose our 8 cm round Ventralex mesh. We placed it inside the abdomen, brought up and flushed against the posterior abdominal wall. We closed the fascial defect transversely with interrupted [id number] and simple #1 Prolene sutures. Several passes of the suture went through the tab on the mesh to help hold it in place. The tab was then cut, flushed with the abdominal wall. Local anesthetic was copiously injected in the abdominal wall. We did not have to elevate the umbilicus from the fascia. We then brought the deep adipose tissue together with interrupted 3-0 Monocryl sutures. We injected local anesthetic into the abdominal wall in the subcutaneous tissues. The wound had been irrigated and suctioned out until clear. We closed the dermis with interrupted 3-0 subcuticular Monocryl sutures. The skin edges were reapproximated with a running 5-0 fast absorbing plain gut suture. Dry gauze and tape was then applied. Lenore was awakened from her anesthesia, extubated in the OR, and taken to recovery room in stable condition. Jan Fish MD ALB/MODL /[id number] Electronically Signed By: JAN FISH MD 11/30/23 07 PATIENT NAME: LENORE DUNN OPERATIVE REPORT DATE OF : 61 REPORT #: [id number] PHYSICIAN: JAN FISH MD PCP: RENATE GLOVER MD REPORT IS CONFIDENTIAL AND NOT TO BE RELEASED WITHOUT AUTHORIZATION [address] [address] Signed cc: MD Jan Sanchez MD Copies: RENATE GLOVER MD, ANDREW L MD ~ Electronically Signed By: JAN FISH MD 11/30/23711 PATIENT NAME: LENORE DUNN OPERATIVE REPORT DATE OF : 61 REPORT #: [id number] PHYSICIAN: JAN FISH MD PCP: RENATE GLOVER MD REPORT IS CONFIDENTIAL AND NOT TO BE RELEASED WITHOUT AUTHORIZATION
[2023-12-05] MEDS ORDERED: SYMBICORT 16010.2 GM INH (17:37)
[2023-12-05] MEDS ORDERED: CLONIDINE HCL0.1 MG PO (17:39)
[2023-12-05] MEDS ORDERED: LANSOPRAZOLE30 MG PO (17:41)
== END 2023-11-29 15:03 | disposition home or self-care (01) ==
LOC: ED 11:04 → MS 11:06
PROVIDERS: Emergency Medicine; Family Medicine; ADMIT Colon & Rectal Surgery; ATTEND Colon & Rectal Surgery
PROC: 0WUF0JZ Supplement Abdominal Wall with Synthetic Substitute, Open Approach (ICD-10-PCS; principal; 2023-11-29 09:00)
DX: K43.0 Incisional hernia with obstruction, without gangrene (principal); I10 Essential (primary) hypertension; F17.210 Nicotine dependence, cigarettes, uncomplicated; J45.909 Unspecified asthma, uncomplicated; F43.10 Post-traumatic stress disorder, unspecified; G89.29 Other chronic pain; M54.9 Dorsalgia, unspecified; E78.5 Hyperlipidemia, unspecified; Z79.899 Other long term (current) drug therapy; Z88.0 Allergy status to penicillin; Z88.8 Allergy status to other drugs, medicaments and biological substances
CPT/HCPCS: 00750; 36415; 80048; 80053; 81003; 83690; 85025; 93005; 93010; 94640; 96372; 96374; 96375; 96376; 99285-25; A9270; C1781; G0378; J0131; J1100; J1170; J1650; J1885; J1956; J2001; J2405; J2470; J2704; J3010; J3490; J7030; J7121

== ENCOUNTER 2023-12-18 06:40 | Day surgery (SDC) | payer OTHER ==
[~2023-12-18] VITALS: Ht 167.6 cm; Wt 57.1 kg
[~2023-12-18 06:40] MED LIST changes: +ADVAIR 500-501 EACH INH; +ATORVASTATIN CA40 MG PO; +BENADRYL25 MG PO; +BUPROPION XL150 MG PO; +CLINDAMYCIN PHOSPHATE/D5W 600 MG/50 ML BAG IV SCH; +CLONIDINE HCL0.1 MG PO; +ESTRADIOL2 MG PO; +FLUOXETINE HCL40 MG PO; +HEParin SOD (PORCINE) 5,000 UNIT/0.5 ML SYR SUB-Q SCH; +IBLOOD GLUCOSE TEST STRIP 1 EA TEST VI PRN; +LACTATED RINGER'S 1,000 ML IV SCH; +LANSOPRAZOLE30 MG PO; +LIDOCAINE HCL 1% 5 ML SDV INJ ONE; +MONTELUKAST SOD10 MG PO; +OXYCODONE HCL10 MG PO; +SLEEP AID25 M1 PO; +SPIRIVA18 MCG INH; +VENTOLIN HFA18 GM INH
[2023-12-18 06:59] VITALS: BP 141/77
[2023-12-18] MEDS ORDERED: LIDOCAINE HCL 1% 5 ML SDV INJ ONE (07:00)
[2023-12-18] MEDS ORDERED: HEParin SOD (PORCINE) 5,000 UNIT/0.5 ML SYR SUB-Q SCH (07:00)
[2023-12-18] MEDS ORDERED: CLINDAMYCIN PHOSPHATE/D5W 900 MG/50 ML BAG IV SCH (07:00)
[2023-12-18] MEDS ORDERED: IBLOOD GLUCOSE TEST STRIP 1 EA TEST VI PRN ×2 (07:00→10:15)
[2023-12-18] MEDS ORDERED: CLINDAMYCIN PHOSPHATE/D5W 600 MG/50 ML BAG IV SCH (07:00)
[2023-12-18] MEDS ORDERED: ondansetron HCL 4 MG/2 ML VIAL ONE (08:53)
[2023-12-18] MEDS ORDERED: LIDOCAINE HCL 2% 5 ML SDV ONE (08:53)
[2023-12-18] MEDS ORDERED: propofoL 200 MG/20 ML VIAL ONE ×2 (08:53→09:24)
[2023-12-18] MEDS ORDERED: fentaNYL citrate 100 MCG/2 ML VIAL ONE (08:54)
[2023-12-18] MEDS ORDERED: ePHEDrine sulfate 50 MG/ML AMP ONE (09:31)
[2023-12-18] MEDS ORDERED: LACTATED RINGER'S 1,000 ML IV ONE (09:50)
[2023-12-18] MEDS ORDERED: HYDROmorphone HCL 1 MG/ML SYR IV PRN ×3 (10:15→11:30)
[2023-12-18] MEDS ORDERED: ondansetron HCL 4 MG/2 ML VIAL IV PRN ×2 (10:15)
[2023-12-18] MEDS ORDERED: PROCHLORPERAZINE EDISYLATE 10 MG/2 ML VIAL IV PRN (10:15)
[2023-12-18] MEDS ORDERED: fentaNYL citrate 50 MCG/ML SDV IV PRN (10:15)
[2023-12-18] MEDS ORDERED: NALOXONE HCL 0.4 MG SYR IV PRN ×3 (10:15→11:30)
[2023-12-18] MEDS ORDERED: ACETAMINOPHEN 1,000 MG/100 ML VIAL IV ONE (10:45)
[2023-12-18] MEDS ORDERED: MIDAZOLAM HCL 2 MG/2 ML VIAL IV ONE (10:45)
[2023-12-18 10:53] VITALS: BP 127/79
--- NOTE | 2023-12-18 11:08 | NUR ---
12/18/23 1108 Dottie Dolan 1001 PT ARRIVED IN PACU ROLLING FROM SIDE TO SIDE AND MOANING IN PAIN. 1002 MEDS GIVEN BY ANESTHESIA. 1010 ICE TO ABD. 1020 CONTINUES TO C/O ABD PAIN 11/22. DILAUDID 0.5MG GIVEN IV. 1025 PAIN DOWN TO 7/10. DILAUDID 0.5MG GIVEN IV. 1035 OFFERED TO TRY FENTANYL FOR PAIN RELIEF AND PT REFUSED. 1040 NEW ORDERS RECEIVED FROM ANESTHESIA. 1045 VERSED 2MG GIVEN IVP TO HELP PT RELAX. OFIRMEV 1GM GIVEN IV FOR C/O ABD PAIN 10/22. 1050 NO CHANGE IN PAIN LEVEL. WILL RETURN TO DS TO TRY ORAL PAIN MEDICATION. 1055 TO DS. REPORT GIVEN TO MARYELLEN.
--- NOTE | 2023-12-18 11:25 | NUR ---
LE 1055-PT BACK TO ROOM FROM PACU ON RA. RECEIVED REPORT FROM GAURAV BOJORQUEZ. PT IS AWAKE. RESP EVEN AND UNLABORED. RATES PAIN 8/10, DENIES NAUSEA. PT IS RUBBING ABDOMEN. PT STATES ICE PACK TO HEAVY FOR ABDOMEN AT THIS TIME. PT IS EATING CRACKERS AND TAKING SIPS OF WATER. WILL GET ORDER FOR ORAL PAIN MECIATIONS. NO OTHER NEEDS AT THIS TIME. CALL LIGHT WITHIN REACH. LE 1122-PAIN MEDICATION GIVEN PER EMAR. FRIEND IN ROOM. NO OTHER NEEDS AT THIS TIME. CALL LIGHT WITHIN REACH. PT TOLERATING ICE PACK ON ABDOMEN.
[2023-12-18] MEDS ORDERED: OXYCODONE HCL 5 MG TAB PO PRN (11:30)
[2023-12-18 11:57] VITALS: BP 117/65
--- NOTE | 2023-12-18 12:09 | NUR ---
1157-PT IN BED ON HER PHONE. RESP EVEN AND UNLABORED. RATES PAIN A /10. PT STATES THIS IS TOLERABLE. PT STATES SHE IS FEELING MORE CALM AND THE BURNING SENSATION IS ALMOST GONE. PT DRINKING WATER. NO OTHER NEEDS AT THIS TIME. STATES SHE WOULD LIKE MORE TIME AND WILL USE CALL LIGHT WHEN READY TO USE THE RESTROOM.
[2023-12-18 12:53] VITALS: BP 116/92
--- NOTE | 2023-12-18 13:50 | NUR ---
LE 1253-PT LAYING IN BED ON HER PHONE. RESP EVEN AND UNLABORED. RATES PAIN 6/10 AND THIS IS TOLERABLE. PT STATES MUCH MORE RELAXED. DENIES NAUSEA. PT IS READY TO GO HOME. LE 1255-PT UP TO RESTROOM. GAIT STEADT AND TOLERATED WELL. PT ABLE TO VOID. LE 1258-PT BACK TO ROOM. PT WILL GET DRESSED. CALL LIGHT WITHIN REACH.
--- NOTE | 2023-12-18 14:06 | NUR ---
ANATOLIY 1308-WENT OVER DISCHARGE INSTRUCTIONS WITH PT. WENT OVER POSTOP MEDICATIONS. ALL QUESTIONS ANSWERED. NO ABDOMINAL SWELLING NOTED. ABDOMEN IS NOT TENDER TO THE TOUCH. PT ABMULATES TO WHEELCHAIR AND RIDE PROVIDED TO FRONT OF HOSPITAL WHERE WAS WAITING WITH THE CAR.
--- NOTE | 2023-12-18 15:12 | OR ---
[facility] [address], [place] [address] Signed DATE OF OPERATION: 12/18/2023 SURGEON: Jan Fish MD PREOPERATIVE DIAGNOSIS: Subcutaneous infraumbilical wound hematoma (9 x 13 cm). POSTOPERATIVE DIAGNOSIS: Subcutaneous infraumbilical wound hematoma (9 x 13 cm). PROCEDURE: Evacuation of subcutaneous wound hematoma. ESTIMATED BLOOD LOSS: None. INDICATIONS: Lenore is a 58-year-old female, who came to us about three weeks ago to repair an infraumbilical trocar site incisional hernia measuring about 3 x 2 cm. However, the hernia itself was larger and therefore, the hernia cavity and subcutaneous space was larger, probably the size of a softball. She has also lost about 70 pounds. Therefore, her skin is very redundant. We had repaired that as usual with intraabdominal mesh and closed the fascial defect transversely with Prolene sutures. When she came back to the office, she had a fairly significant wound hematoma and has already had some ecchymoses down on the mons and her inner thighs. The ultrasound confirmed with wound hematoma. I explained to Lenore, I thought probably best we come back to the OR to evacuate that and we would close that wound in layers once again. I did warn her that she might get some seroma, but would prefer that she not have a wound hematoma quite that size. Of course, that increases her risk of wound infection. She understands that this will be a simple day procedure. We would not have to do anything to the muscle just the skin and subcutaneous tissues. There is risk to the surgery including, but not limited to bleeding, infection, scarring, change in contour of the skin as well as recurrent wound hematoma and/or seroma. She had expressed understanding and wished to proceed. PROCEDURE IN DETAIL: I met with Lenore and her friend in our preop area along with our nurse. We all agreed on the operative site. We marked that appropriately just below the umbilicus. She has already starting to resolve some of the ecchymoses on the mons and inner thighs. After this we took Lenore into the operating room and placed in the supine position under general LMA anesthesia. She was given preoperative antibiotics along with subcutaneous Electronically Signed By: JAN FISH MD 12/18/23 1512 PATIENT NAME: LENORE DUNN OPERATIVE REPORT DATE OF : 61 REPORT #: [id number] PHYSICIAN: JAN FISH MD PCP: RENATE GLOVER MD REPORT IS CONFIDENTIAL AND NOT TO BE RELEASED WITHOUT AUTHORIZATION [facility] [address], [place] [address] Signed Lovenox. SCDs were utilized. She was prepped and draped in the usual sterile fashion. We then opened up her previous incision sharply with a 15 blade knife. We entered the wound and we evacuated all the hematoma. We rinsed the wound with 2 L of saline and cleaned out the wound quite nicely. We looked around. There was no evidence of any bleeding. Of course that subcutaneous tissue is now whole indurated, we brought that subcutaneous tissue back together in the midline with interrupted 3-0 Monocryl sutures. We then brought the dermis back together with interrupted 3-0 Monocryl sutures. The skin edges were then reapproximated with a running 5-0 fast absorbing plain gut suture. Dry gauze and tape was then applied. After this Lenore was awakened from anesthesia, extubated in the OR, and taken to recovery room in stable condition. Jan Fish MD ALB/MODL /[id number] cc: MD Jan Sanchez MD Copies: RENATE GLOVER MD, ANDREW L MD ~ Electronically Signed By: JAN FISH MD 12/18/23 1512 PATIENT NAME: LENORE DUNN OPERATIVE REPORT DATE OF : 61 REPORT #: [id number] PHYSICIAN: JAN FISH MD PCP: RENATE GLOVER MD REPORT IS CONFIDENTIAL AND NOT TO BE RELEASED WITHOUT AUTHORIZATION
== END 2023-12-18 13:08 | disposition home or self-care (01) ==
LOC: DS 06:40
PROVIDERS: ATTEND Colon & Rectal Surgery
PROC: 0J980ZZ Drainage of Abdomen Subcutaneous Tissue and Fascia, Open Approach (ICD-10-PCS; principal; 2023-12-18 08:15)
DX: L76.32 Postprocedural hematoma of skin and subcutaneous tissue following other procedure (principal); Y83.8 Other surgical procedures as the cause of abnormal reaction of the patient, or of later complication, without mention of misadventure at the time of the procedure; K43.0 Incisional hernia with obstruction, without gangrene; I10 Essential (primary) hypertension; J45.909 Unspecified asthma, uncomplicated; Z88.6 Allergy status to analgesic agent; Z88.0 Allergy status to penicillin; Z79.899 Other long term (current) drug therapy
CPT/HCPCS: 00800; A9270; J0131; J1170; J1644; J2001; J2250; J2405; J2704; J3010; J3490; J7121